=== PATIENT | male | born 1985 | race Hispanic/Latino ===

== ENCOUNTER 2017-02-04 09:02 | Emergency (ER) | payer SELFPAY ==
[2017-02-04 09:10] VITALS: BP 134/77
[2017-02-04 09:58] LABS: Basophils % (Auto) 0.3 % (0.0-1.8); Eosinophils % (Auto) 3.9 % (0.0-4.3); Hematocrit 45.2 % (35.5-45.6); Hemoglobin 14.8 gm/dl (11.8-15.2); Mean Corpuscular HGB Conc 33 % (32-34); Mean Corpuscular Hemoglobin 28 pg (28-32); Mean Corpuscular Volume 85 fl (84-94); Platelet Count 304 K/mm3 (140-440); Red Cell Distribution Width 14.1 % (13.2-15.2); White Blood Count 9.7 K/mm3 (4.5-11.0)
[2017-02-04 10:02] LABS: Anion Gap 17 mmol/L; BUN/Creatinine Ratio 17.14; Blood Urea Nitrogen 12 mg/dL (9-20); Calcium 8.7 mg/dL (8.4-10.2); Carbon Dioxide 27 mmol/L (22-30); Chloride 99.6 mmol/L (98-107); Glucose 91 mg/dL (75-100); Potassium 4.1 mmol/L (3.6-5.0); Sodium 139 mmol/L (137-145)
[2017-02-04] MEDS ORDERED: PROTONIX PO ONE (11:39)
[2017-02-04] MEDS ORDERED: PEPCID PO ONE (11:39)
[2017-02-04 11:45] LABS: Bacteria,Urine 1+ /HPF (Negative); Bilirubin,Urine NEG (Negative); Blood,Urine NEG (Negative); Ketones,Urine NEG (Negative); Leukocyte Esterase,Urine NEG (Negative); Nitrite,Urine NEG (Negative); Protein,Urine <15 mg/dL mg/dL (Negative); Urobilinogen,Urine < 2.0 mg/dL (<2.0)
--- NOTE | 2017-02-04 11:46 | Emergency Department Report ---
ED Abdominal Pain HPI - General Chief Complaint: Abdominal Pain Stated Complaint: STOMACH ISSUES Time Seen by Provider: 02/04/17 11:20 Source: patient Mode of arrival: Ambulatory Limitations: No Limitations - History of Present Illness Initial Comments: 31-year-old male here with complaints of 6 months of abdominal pain. Patient states she's had abdominal pain that feels like a burning sensation in his abdomen for the past 6 months. He states that it just bothered him more tonight and that is why he came to the emergency department. He has a sour taste in his mouth and he belches frequently. He has not tried any medications. He has no fevers chills nausea vomiting. He is no black stools or melena. MD Complaint: abdominal pain -: Gradual, month(s) (6 months) Location: epigastric Radiation: none Migration to: no migration Severity: moderate Improves With: nothing Worsens With: nothing Associated Symptoms: denies: nausea, vomiting, diarrhea, fever, chills, constipation, dysuria, hematemesis - Related Data Previous Rx's Medication Instructions Recorded Last Taken Type Famotidine [Pepcid] 20 mg PO BID #60 tablet 02/04/17 Unknown Rx Omeprazole Magnesium [PriLOSEC Otc] 20 mg PO BID #60 tab 02/04/17 Unknown Rx Allergies Allergy/AdvReac Type Severity Reaction Status Date / Time No Known Allergies Allergy Unverified 02/04/17 09:07 ED Review of Systems ROS: Stated complaint: STOMACH ISSUES Other details as noted in HPI Comment: All other systems reviewed and negative Constitutional: denies: chills, fever Eyes: denies: eye pain, eye discharge, vision change ENT: denies: ear pain, throat pain Respiratory: denies: cough, shortness of breath, wheezing Cardiovascular: denies: chest pain, palpitations Endocrine: no symptoms reported Gastrointestinal: abdominal pain, nausea. denies: diarrhea Genitourinary: denies: urgency, dysuria Musculoskeletal: denies: back pain, joint swelling, arthralgia Skin: denies: rash, lesions Neurological: denies: headache, weakness, paresthesias Psychiatric: denies: anxiety, depression Hematological/Lymphatic: denies: easy bleeding, easy bruising ED Past Medical Hx - Past Medical History Previous Medical History?: No - Surgical History Past Surgical History?: Yes Additional Surgical History: hernia repair, T&A - Family History Family history: no significant - Social History Smoking Status: Never Smoker Substance Use Type: None - Medications Home Medications: Home Medications Medication Instructions Recorded Confirmed Last Taken Type Famotidine [Pepcid] 20 mg PO BID #60 tablet 02/04/17 Unknown Rx Omeprazole Magnesium [PriLOSEC Otc] 20 mg PO BID #60 tab 02/04/17 Unknown Rx ED Physical Exam - General Limitations: No Limitations General appearance: alert, in no apparent distress - Head Head exam: Present: atraumatic, normocephalic - Eye Eye exam: Present: normal appearance - ENT ENT exam: Present: mucous membranes moist - Neck Neck exam: Present: normal inspection - Respiratory Respiratory exam: Present: normal lung sounds bilaterally. Absent: respiratory distress - Cardiovascular Cardiovascular Exam: Present: regular rate, normal rhythm. Absent: systolic murmur, diastolic murmur, rubs, gallop - GI/Abdominal GI/Abdominal exam: Present: soft, tenderness (epigastric), normal bowel sounds. Absent: distended, guarding, rebound, rigid - Rectal Rectal exam: Present: deferred - Extremities Exam Extremities exam: Present: normal inspection - Back Exam Back exam: Present: normal inspection - Neurological Exam Neurological exam: Present: alert, oriented X3 - Psychiatric Psychiatric exam: Present: normal affect, normal mood - Skin Skin exam: Present: warm, dry, intact, normal color. Absent: rash ED Course Vital Signs 02/04/17 09:07 Temperature 97.6 F Pulse Rate 56 L Respiratory 17 Rate Blood Pressure 134/77 O2 Sat by Pulse 100 Oximetry ED Medical Decision Making - Lab Data Result diagrams: 02/04/17 09:25 02/04/17 09:25 Abnormal Lab Results 02/04/17 02/04/17 02/04/17 09:25 09:25 10:57 WBC 9.7 RBC 5.30 H Hgb 14.8 Hct 45.2 MCV 85 MCH 28 MCHC 33 RDW 14.1 Plt Count 304 Lymph % (Auto) 36.7 H Mcpherson % (Auto) 13.5 H Eos % (Auto) 3.9 Baso % (Auto) 0.3 Lymph # 3.6 Mcpherson # 1.3 H Eos # 0.4 Baso # 0.0 Seg Neutrophils % 45.6 Seg Neutrophils # 4.4 Sodium 139 Potassium 4.1 Chloride 99.6 Carbon Dioxide 27 Anion Gap 17 BUN 12 Creatinine 0.7 L Estimated GFR > 60 BUN/Creatinine Ratio 17.14 Glucose 91 Calcium 8.7 Urine Bilirubin Neg Urine RBC (Auto) 1.0 - Medical Decision Making 31-year-old male here with complaint of abdominal pain. Patient has symptoms consistent with GERD. He has no other risk factors for other pathology. This portal plan to treat him with oral HQ andrae and oral PPI and likely discharge home. Discussed need to follow up with carpentry instructor if symptoms do not resolve within the next month. Portions of this chart were dictated with dictation software. There may be dictation errors contained within this note. Critical care attestation.: If time is entered above; I have spent that time in minutes in the direct care of this critically ill patient, excluding procedure time. ED Disposition Clinical Impression: GERD (gastroesophageal reflux disease) Disposition: DC-01 TO HOME OR SELFCARE Is pt being admited?: No Condition: Stable Instructions: Gastroesophageal Reflux Disease (ED) Additional Instructions: Please follow-up with a carpentry instructor should your symptoms not resolve in the next month Prescriptions: Famotidine [Pepcid] 20 mg PO BID #60 tablet Omeprazole Magnesium [PriLOSEC Otc] 20 mg PO BID #60 tab Referrals: PRIMARY CARE, [Primary Care Provider] - 3-5 Days
== END 2017-02-04 11:53 | disposition home or self-care (01) ==
LOC: ED 09:02
DX: K21.9 Gastro-esophageal reflux disease without esophagitis (principal); Z98.890 Other specified postprocedural states
CPT/HCPCS: 36415; 80048; 81001; 85025; 99283